=== PATIENT | female | born 1950 | race Caucasian/White ===

== ENCOUNTER 2021-10-03 12:36 | Inpatient (IN) | payer MEDICAID, MEDICARE, OTHER ==
[~2021-10-03] VITALS: Ht 157.5 cm; Wt 88.4 kg
[~2021-10-03 12:36] MED LIST: ACET65TA OR; ALLO100T OR; ATEN25TA OR; COLA100C2 OR; HYDR25TA6 OR; KLOR8TAB OR; LIPI10TA OR; LISI10TA4 OR; PERC5TAB8 OR; ZOLO50TA OR
[2021-10-03] MEDS ORDERED: PANT40TA29 PO (12:55)
[2021-10-03] MEDS ORDERED: LATA0.0015 OU (12:55)
[2021-10-03] MEDS ORDERED: ALLO100T PO (12:55)
[2021-10-03] MEDS ORDERED: CALC1CAP31 PO (12:55)
[2021-10-03] MEDS ORDERED: LABE100T4 PO (12:55)
[2021-10-03 13:41] LABS: RSV AMPLIFICATION NEGATIVE (NEGATIVE)
[2021-10-03 15:54] LABS: BASO % 0.4 % (0.0-1.0); EOS # 0.2 10^3/uL (0.0-0.5); EOS % 3.4 % (0.0-3.0); HEMATOCRIT 35.4 % (36.0-47.0); HEMOGLOBIN 11.4 g/dl (12.0-15.5); LYMPH # 1.1 10^3/uL (1.5-5.0); MEAN CORPUSCULAR HEMOGLOBIN 29.8 pg (27.0-33.0); MEAN CORPUSCULAR HGB CONC 32.2 g/dl (32.0-36.5); MEAN CORPUSCULAR VOLUME 92.4 fl (80.0-96.0); MONO # 0.4 10^3/uL (0.0-0.8); MONO % 8.3 % (2.0-8.0); NEUTROPHILS # 3.2 10^3/uL (1.5-8.5); NEUTROPHILS % 64.3 % (36.0-66.0); PLATELET COUNT, AUTOMATED 205 10^3/uL (150-450); RED BLOOD COUNT 3.83 10^6/uL (4.00-5.40)
[2021-10-03 16:16] LABS: ALBUMIN 3.9 GM/DL (3.2-5.2); BILIRUBIN,DIRECT 0.2 MG/DL (0.0-0.2); BILIRUBIN,TOTAL 0.5 MG/DL (0.2-1.0); CALCIUM LEVEL 9.1 MG/DL (8.8-10.2); GLOMERULAR FILTRATION RATE 16.4 (>39); POTASSIUM SERUM 4.3 MEQ/L (3.5-5.1); TOTAL PROTEIN 7.5 GM/DL (6.4-8.2)
[2021-10-03] MEDS ORDERED: NS 500 ML IV ONE ×2 (16:20→17:20)
[2021-10-03] MEDS ORDERED: IRON325T9 PO (16:36)
[2021-10-03] MEDS ORDERED: ATOR1TAB19 PO (16:36)
[2021-10-03] MEDS ORDERED: ACET1TAB55 PO (16:36)
[2021-10-03] MEDS ORDERED: SERT50TA29 PO (16:36)
[2021-10-03] MEDS ORDERED: HOME MED LIST COMPLETE! XX SCH (16:40)
[2021-10-03] MEDS ORDERED: MAALOX 30 ML SUSP *UDC PO PRN (17:40)
[2021-10-03] MEDS ORDERED: ACETAMINOPHEN TAB 650MG DOSE (2X325MG) PO PRN (17:40)
[2021-10-03 20:20] LABS: CALCIUM LEVEL 8.3 MG/DL (8.8-10.2); CREATININE FOR GFR 2.64 MG/DL (0.55-1.30); POTASSIUM SERUM 3.7 MEQ/L (3.5-5.1)
[2021-10-03] MEDS: LABETALOL 100MG TAB PO SCH (22:06)
[2021-10-03] MEDS: FAMOTIDINE 20 MG TAB PO SCH (22:06)
[2021-10-03] MEDS: SERTRALINE HCL 50 MG TAB PO SCH (22:07)
[2021-10-03] MEDS: guaiFENesin ER 600 MG TAB PO SCH (22:09)
[2021-10-03] MEDS: LATANOPROST 0.005% OPHTH SOLN 2.5 ML OU SCH (22:10)
[2021-10-03] MEDS: ATORVASTATIN 10 MG TAB PO SCH (22:10)
[2021-10-03] MEDS: BENZONATATE 100MG CAPSULE PO SCH (22:10)
[2021-10-03] MEDS: NS 1,000 ML IV SCH ×2 (22:10→23:24)
[2021-10-03 23:15] VITALS: BP 137/67
[2021-10-04] MEDS: NS 1,000 ML IV SCH ×3 (05:51→21:10)
[2021-10-04 06:00] VITALS: BP 142/65
[2021-10-04] MEDS: FAMOTIDINE 20 MG TAB PO SCH ×2 (08:35→20:55)
[2021-10-04] MEDS: LABETALOL 100MG TAB PO SCH ×2 (08:36→20:54)
[2021-10-04] MEDS: guaiFENesin ER 600 MG TAB PO SCH ×2 (08:37→20:54)
[2021-10-04] MEDS: BENZONATATE 100MG CAPSULE PO SCH ×2 (08:37→20:54)
[2021-10-04] MEDS: FERROUS SULFATE 325MG TAB PO SCH (08:38)
[2021-10-04 08:46] LABS: BASO % 0.6 % (0.0-1.0); EOS # 0.1 10^3/uL (0.0-0.5); EOS % 3.1 % (0.0-3.0); HEMATOCRIT 30.7 % (36.0-47.0); HEMOGLOBIN 9.8 g/dl (12.0-15.5); LYMPH # 0.9 10^3/uL (1.5-5.0); LYMPH % 26.2 % (24.0-44.0); MEAN CORPUSCULAR HEMOGLOBIN 29.2 pg (27.0-33.0); MEAN CORPUSCULAR HGB CONC 31.9 g/dl (32.0-36.5); MEAN CORPUSCULAR VOLUME 91.4 fl (80.0-96.0); MONO # 0.5 10^3/uL (0.0-0.8); MONO % 13.7 % (2.0-8.0); NEUTROPHILS % 56.1 % (36.0-66.0); PLATELET COUNT, AUTOMATED 147 10^3/uL (150-450); RED BLOOD COUNT 3.36 10^6/uL (4.00-5.40); WHITE BLOOD COUNT 3.5 10^3/uL (4.0-10.0)
[2021-10-04 09:06] LABS: CALCIUM LEVEL 8.1 MG/DL (8.8-10.2); CREATININE FOR GFR 2.4 MG/DL (0.55-1.30); GLOMERULAR FILTRATION RATE 21.2 (>39); POTASSIUM SERUM 3.7 MEQ/L (3.5-5.1)
[2021-10-04 12:07] LABS: CALCIUM LEVEL 8.1 MG/DL (8.8-10.2); CREATININE FOR GFR 2.37 MG/DL (0.55-1.30); GLOMERULAR FILTRATION RATE 21.5 (>39); POTASSIUM SERUM 3.9 MEQ/L (3.5-5.1)
[2021-10-04 14:00] VITALS: BP 169/75
[2021-10-04] MEDS: HEPARIN SOD (PORCINE) 5000UNITS/ML 1ML VIAL/SYRINGE SQ SCH ×2 (15:41→20:55)
[2021-10-04] MEDS ORDERED: CIPROFLOXACIN 500MG TABLET PO SCH (18:00)
[2021-10-04 20:55] VITALS: BP 171/72
[2021-10-04] MEDS: ATORVASTATIN 10 MG TAB PO SCH (20:55)
[2021-10-04] MEDS: LATANOPROST 0.005% OPHTH SOLN 2.5 ML OU SCH ×2 (20:55→21:06)
[2021-10-04] MEDS: SERTRALINE HCL 50 MG TAB PO SCH (20:55)
[2021-10-05 06:09] VITALS: BP 172/82
[2021-10-05] MEDS: HEPARIN SOD (PORCINE) 5000UNITS/ML 1ML VIAL/SYRINGE SQ SCH (06:15)
[2021-10-05 07:45] LABS: BASO % 0.3 % (0.0-1.0); EOS # 0.2 10^3/uL (0.0-0.5); EOS % 4.5 % (0.0-3.0); HEMATOCRIT 33.5 % (36.0-47.0); HEMOGLOBIN 10.7 g/dl (12.0-15.5); LYMPH # 1.1 10^3/uL (1.5-5.0); MEAN CORPUSCULAR HGB CONC 31.9 g/dl (32.0-36.5); MEAN CORPUSCULAR VOLUME 93.8 fl (80.0-96.0); MONO # 0.4 10^3/uL (0.0-0.8); MONO % 10.7 % (2.0-8.0); NEUTROPHILS # 2.1 10^3/uL (1.5-8.5); NEUTROPHILS % 55.7 % (36.0-66.0); PLATELET COUNT, AUTOMATED 173 10^3/uL (150-450); RED BLOOD COUNT 3.57 10^6/uL (4.00-5.40); WHITE BLOOD COUNT 3.8 10^3/uL (4.0-10.0)
[2021-10-05 08:24] LABS: CALCIUM LEVEL 8.5 MG/DL (8.8-10.2); CREATININE FOR GFR 2.06 MG/DL (0.55-1.30); GLOMERULAR FILTRATION RATE 25.3 (>39); MAGNESIUM LEVEL 1.9 MG/DL (1.8-2.4)
[2021-10-05 08:28] VITALS: BP 165/76
[2021-10-05] MEDS: BENZONATATE 100MG CAPSULE PO SCH (08:28)
[2021-10-05] MEDS: LABETALOL 100MG TAB PO SCH (08:28)
[2021-10-05] MEDS: FERROUS SULFATE 325MG TAB PO SCH (08:29)
[2021-10-05] MEDS: guaiFENesin ER 600 MG TAB PO SCH (08:29)
[2021-10-05] MEDS: FAMOTIDINE 20 MG TAB PO SCH (08:29)
[2021-10-05] MEDS ORDERED: CIPR-249 PO (10:53)
[2021-10-05] MEDS ORDERED: FAMO20TA PO (10:53)
[2021-10-05] MEDS ORDERED: MUCI600T31 PO (10:53)
== END 2021-10-05 13:45 | disposition home health service (06) | DRG 683 ==
LOC: M ED 12:36 → M ED INP 17:40 → M MS5PR 23:13
PROVIDERS: ADMIT Family Medicine; ATTEND Family Medicine
DX: N17.9 Acute kidney failure, unspecified (principal); A04.0 Enteropathogenic Escherichia coli infection; I12.9 Hypertensive chronic kidney disease with stage 1 through stage 4 chronic kidney disease, or unspecified chronic kidney disease; Z90.5 Acquired absence of kidney; Z85.528 Personal history of other malignant neoplasm of kidney; N18.9 Chronic kidney disease, unspecified; J09.X3 Influenza due to identified novel influenza A virus with gastrointestinal manifestations; E86.0 Dehydration; Z20.822 Contact with and (suspected) exposure to COVID-19; Z79.899 Other long term (current) drug therapy; Z88.8 Allergy status to other drugs, medicaments and biological substances

== ENCOUNTER → 2022-01-19 | Outpatient (REF) | payer MEDICARE, BC ==
[~2022-01-19] MED LIST changes: +ACET1TAB55 PO; +ALLO100T PO; +ATOR1TAB19 PO; +CALC1CAP31 PO; +CIPR-249 PO; +FAMO20TA PO; +IRON325T9 PO; +LABE100T6 PO; +LATA0.0015 OU; +MUCI600T31 PO; +PANT40TA29 PO; +SERT50TA29 PO
[2022-01-19 18:00] LABS: PERCENT SATURATION 15.5 % (13.2-45.0)
== END ==
LOC: M LAB REF 16:48
PROVIDERS: ATTEND Nurse Practitioner Family
DX: D50.9 Iron deficiency anemia, unspecified (principal)

== ENCOUNTER → 2022-02-08 | Outpatient (CLI) | payer MEDICARE, BC | LOC: M WHC 09:46 | PROVIDERS: ATTEND Nurse Practitioner Family | DX: N17.9 Acute kidney failure, unspecified (principal); R33.9 Retention of urine, unspecified ==

== ENCOUNTER → 2022-07-29 | Outpatient (REF) | payer MEDICARE, BC ==
[2022-07-29 16:08] LABS: POTASSIUM SERUM 4.5 MMOL/L (3.5-5.1)
== END ==
LOC: M LAB REF 15:11
PROVIDERS: ATTEND Nurse Practitioner Family
DX: N18.4 Chronic kidney disease, stage 4 (severe) (principal)

== ENCOUNTER 2022-11-24 21:27 | Emergency (ER) | payer MEDICARE, BC ==
[2022-11-24 22:20] LABS: BASO # 0.1 10^3/uL (0.0-0.2); BASO % 0.6 % (0.0-1.0); EOS # 0.2 10^3/uL (0.0-0.5); EOS % 2.3 % (0.0-3.0); HEMATOCRIT 33.5 % (36.0-47.0); HEMOGLOBIN 10.3 g/dl (12.0-15.5); LYMPH # 1.3 10^3/uL (1.5-5.0); LYMPH % 13.2 % (24.0-44.0); MEAN CORPUSCULAR HGB CONC 30.7 g/dl (32.0-36.5); MEAN CORPUSCULAR VOLUME 87.7 fl (80.0-96.0); MONO # 0.8 10^3/uL (0.0-0.8); MONO % 7.8 % (2.0-8.0); NEUTROPHILS # 7.4 10^3/uL (1.5-8.5); NEUTROPHILS % 74.6 % (36.0-66.0); PLATELET COUNT, AUTOMATED 309 10^3/uL (150-450); RED BLOOD COUNT 3.82 10^6/uL (4.00-5.40)
[2022-11-24 22:51] LABS: RSV AMPLIFICATION NEGATIVE (NEGATIVE)
[2022-11-24 22:56] LABS: ALBUMIN 3.1 G/DL (3.2-5.2); ALKALINE PHOSPHATASE 167 U/L (46-116); ALT/SGPT < 9 U/L (7.0-40); AST/SGOT 9 U/L (<34); BILIRUBIN,TOTAL < 0.2 MG/DL (0.3-1.2); BLOOD UREA NITROGEN 32 MG/DL (9-23); CARBON DIOXIDE LEVEL 22 MMOL/L (20-31); CHLORIDE LEVEL 109 MMOL/L (98-107); CREATININE FOR GFR 2.82 MG/DL (0.55-1.30); GLOMERULAR FILTRATION RATE 17.5 (>39); GLUCOSE, FASTING 84 MG/DL (74-106); POTASSIUM SERUM 4.1 MMOL/L (3.5-5.1); SODIUM LEVEL 142 MMOL/L (136-145)
[2022-11-25 03:48] LABS: APPEARANCE, URINE HAZY (CLEAR); BACTERIA, URINE AUTO NEGATIVE (NEGATIVE); BILIRUBIN, URINE AUTO NEGATIVE (NEGATIVE); BLOOD, URINE BLOOD 1+ (NEGATIVE); COLOR, URINE YELLOW (YELLOW); GLUCOSE, URINE (UA) AUTO NEGATIVE (NEGATIVE); KETONE, URINE AUTO NEGATIVE (NEGATIVE); LEUKOCYTE ESTERASE, URINE AUTO NEGATIVE (NEGATIVE); MUCUS, URINE SMALL (NEGATIVE); NITRITE, URINE AUTO NEGATIVE (NEGATIVE); PROTEIN, URINE AUTO 2+ mg/dL (NEGATIVE); RBC, URINE AUTO 0 /HPF (0-3); SPECIFIC GRAVITY URINE AUTO 1.012 (1.002-1.035); SQUAMOUS EPITHELIAL CELL UR AU 1 /HPF (0-6); TRANSITIONAL EPITHELIAL AUTO <1 /HPF; UROBILINOGEN, URINE AUTO 0.2 mg/dL (0.0-2.0); WBC, URINE AUTO 3 /HPF (0-3)
[2022-11-25 04:30] VITALS: TEMP 98.5
[2022-11-25 05:31] VITALS: BP 170/74; O2SAT 95
[2022-11-25] MEDS ORDERED: NS 500 ML IV ONE (07:40)
== END 2022-11-25 10:09 | disposition home or self-care (01) ==
LOC: M ED 21:27 → EDBD 21:27 → M ED 11-25 10:09
DX: R19.7 Diarrhea, unspecified (principal); N17.8 Other acute kidney failure; E86.0 Dehydration; I50.20 Unspecified systolic (congestive) heart failure; I11.9 Hypertensive heart disease without heart failure; E78.5 Hyperlipidemia, unspecified; H40.9 Unspecified glaucoma; F32.A Depression, unspecified; Z88.8 Allergy status to other drugs, medicaments and biological substances; Z79.899 Other long term (current) drug therapy